=== PATIENT | female | born 1955 | race Native Hawaiian/Other Pacific Islander ===

== ENCOUNTER 2016-09-30 14:09 | Outpatient (CLI) | payer OTHER ==
--- NOTE | 2016-09-30 16:38 | MRI Report ---
EXAM: RIGHT KNEE MRI WITHOUT CONTRAST EXAM DATE: 09/30/2016 03:06 PM. CLINICAL HISTORY: Pain in right leg. COMPARISON: None. TECHNIQUE: Multiplanar, multisequence T1-weighted and fluid-sensitive sequences of the knee without c ontrast. Other: None. FINDINGS: Bones: No fractures or subluxations. No marrow edema. No bone lesions. Articular Cartilage: There is mild thinning of the hyaline cartilage of the lateral patellar facet. T here is also mild thinning of the hyaline cartilage of the medial and lateral compartments. Medial Meniscus: The medial meniscus is intact. Lateral Meniscus: The lateral meniscus is intact. Cruciate Ligaments: The anterior and posterior cruciate ligaments are intact. Collateral Ligaments: The medial collateral and lateral collateral ligamentous structures are intact. Tendons: The quadriceps, patellar and popliteus tendons appear normal. There is increased T2 signal in the semimembranosus tendon, which appears frayed and surrounded by fl uid close to its distal attachment. The findings are consistent with partial-thickness tearing. The r emaining posteromedial corner structures appear unremarkable. Musculature: No edema or fatty atrophy. Other: No effusion. No popliteal cyst. No loose bodies. The medial and lateral retinacula are intact . The subcutaneous tissues and fat pads are unremarkable. IMPRESSION: 1. Tendinosis and partial-thickness tearing of semimembranosus at its distal attachment. 2. Mild osteoarthritis of all 3 compartments. [facility] MUSCULOSKELETAL RADIOLOGY SECTION Referring Provider Line: [phone] SITE ID: [id number]
== END 2016-09-30 14:10 | disposition home or self-care (01) ==
LOC: DI 14:09
PROVIDERS: ATTEND Family Medicine
DX: M17.11 Unilateral primary osteoarthritis, right knee (principal); S76.811A Strain of other specified muscles, fascia and tendons at thigh level, right thigh, initial encounter

== ENCOUNTER 2021-04-26 10:15 | Outpatient (CLI) | payer MEDICARE, OTHER ==
[2021-04-26 13:16] LABS: HCG UR QUAL NEGATIVE
== END 2021-04-26 10:16 | disposition home or self-care (01) ==
LOC: LAB.N 10:15
PROVIDERS: ATTEND Surgery
DX: Z01.812 Encounter for preprocedural laboratory examination (principal); Z86.010 Personal history of colon polyps; E11.9 Type 2 diabetes mellitus without complications
CPT/HCPCS: 81025

== ENCOUNTER 2021-04-29 06:20 | Day surgery (SDC) | payer MEDICARE, OTHER ==
[2021-04-29] MEDS ORDERED: LACTATED RINGERS 1,000 ML IV ONE ×2 (06:49→08:27)
[2021-04-29] MEDS ORDERED: PROPOFOL 500 MG/50 ML 500 MG/50 ML VIAL ONE (07:08)
[2021-04-29] MEDS ORDERED: ONDANSETRON 4 MG/2 ML VIAL IVP PRN (07:19)
--- NOTE | 2021-04-29 07:21 | ANESTHESIA ---
Pre-Anesthesia VS, & Labs - Diagnosis history of colon polyps - Procedure colonoscopy Vital Signs: Temp Pulse Resp BP Pulse Ox 37.2 C 94 16 139/84 H 99 04/29/21 06:43 04/29/21 06:43 04/29/21 06:43 04/29/21 06:43 04/29/21 06:43 Height: 52 ft Weight (kg): 66.2 kg Body Mass Index: 0.2 BMI Classification: Underweight - NPO >8 hours - Is Patient ?: No - Lab Results Current Lab Results: Laboratory Tests 04/29/21 06:49: POC Whole Bld Glucose 151 H Home Medications and Allergies Ascorbic Acid [Vitamin C] 500 mg PO DAILY 02/25/21 Aspirin [Aspirin EC] 81 mg PO DAILY 02/25/21 Atorvastatin [Lipitor] 20 mg PO DAILY 02/25/21 Cholecalciferol [Vitamin D3] 25 mcg PO DAILY 02/25/21 Lisinopril [Zestril] 20 mg PO DAILY 02/25/21 Meloxicam [Mobic] 7.5 mg PO DAILY PRN 02/25/21 Vitamin B Complex 1 each PO DAILY 02/25/21 metFORMIN [Glucophage] 500 mg PO DAILY 02/25/21 Allergies/Adverse Reactions: Allergies Allergy/AdvReac Type Severity Reaction Status Date / Time clotrimazole [From Lotrimin] Allergy Rash Verified 02/25/21 15:24 prochlorperazine Allergy severe Verified 02/25/21 15:24 [From Compazine] muscle spasms Anes History & Medical History - Anesthetic History Anesthesia Complications: reports: Post-Operative Nausea/Vomiting - Medical History Cardiovascular: reports: Hypertension, High cholesterol Pulmonary: reports: None, Other (snores) Gastrointestinal: reports: Hemorrhoids Urinary: reports: Incontinence Neuro: reports: Headaches, Migraines Musculoskeletal: reports: Osteoarthritis Endocrine/Autoimmune: reports: Type 2 diabetes, HyPERthyroidism, Other (Graves disease) Blood Disorders: reports: None Skin: reports: Eczema Smoking Status: Never smoker Psychosocial: reports: No issues indicated History of Cancer?: No - Surgical History General: reports: Appendectomy Eyes Ears Nose Throat (EENT): reports: Cataracts Gynecologic: reports: section Exam General: Alert, Oriented x3, Cooperative, No acute distress Dental: WNL Mouth Openin Fingerbreadth Neck Mobility: Normal Mallampati classification: II Thyromental Distance: 4-6 cm Mental/Cognitive Status: Alert/Oriented X3, Normal for patient Plan Anesthesia Type: General, Total IV Consent for Procedure(s) Verified and Reviewed: Yes Code Status: Attempt Resuscitation ASA classification: 2-Mild systemic disease Is this case an emergency?: No
[2021-04-29] MEDS ORDERED: GLYCOPYRROLATE 1 MG/5 ML VIAL ONE (08:16)
--- NOTE | 2021-04-29 08:49 | ANESTHESIA POST OP EVALUATION ---
Anesthesia Post Eval - Post Anesthesia Eval Vitals: Last Vital Signs Temp 36.8 C 04/29/21 08:27 Pulse 97 04/29/21 08:27 Resp 16 04/29/21 08:27 BP 132/60 H 04/29/21 08:27 Pulse Ox 100 04/29/21 08:27 CV Function Including HR & BP: Stable Pain Control: Satisfactory Nausea & Vomiting: Negative Mental Status: Baseline Respiratory Status: Airway Patent Hydration Status: Satisfactory Anesthesia Complications: None
[2021-04-29 09:23] VITALS: BP 147/88
== END 2021-04-29 06:21 | disposition home or self-care (01) ==
LOC: SDS 06:20
PROVIDERS: ATTEND Surgery
PROC: 0DBL8ZZ Excision of Transverse Colon, Via Natural or Artificial Opening Endoscopic (ICD-10-PCS; 2021-04-29)
PROC: 0DBN8ZZ Excision of Sigmoid Colon, Via Natural or Artificial Opening Endoscopic (ICD-10-PCS; principal; 2021-04-29 07:30)
DX: Z12.11 Encounter for screening for malignant neoplasm of colon (principal); D12.5 Benign neoplasm of sigmoid colon; D12.3 Benign neoplasm of transverse colon; K64.8 Other hemorrhoids; K64.4 Residual hemorrhoidal skin tags; K57.30 Diverticulosis of large intestine without perforation or abscess without bleeding; R63.6 Underweight; E11.9 Type 2 diabetes mellitus without complications; Z79.84 Long term (current) use of oral hypoglycemic drugs; Z68.1 Body mass index [BMI] 19.9 or less, adult
CPT/HCPCS: 45380; 45385; 87635; J7120

== ENCOUNTER 2022-12-08 09:44 | Outpatient (CLI) | payer MEDICARE, OTHER ==
--- NOTE | 2022-12-08 16:51 | DEXA Report ---
PROCEDURE: Dexa Spine and/or Hip INDICATIONS: POST MENOPAUSAL TECHNIQUE: Dual energy x-ray absorptiometry (DXA) was performed on a [employer] System. Regions measur ed are the AP Spine, femoral neck, and if needed forearm. COMPARISON: None FINDINGS: Lumbar Spine: Bone Mineral Density 1.152 g/cm/cm,T score -0.2. Normal Left Femoral Neck: Bone Mineral Density 0.942 g/cm/cm, T score -0.7. Normal Left Hip: Bone Mineral Density 0.865 g/cm/cm,T score -1.1. Osteopenia (T score greater or equal to -1.0: NORMAL) (T score from -1.1 to -2.4: OSTEOPENIA) (T score less than or equal to -2.5 to: OSTEOPOROSIS) Impression: By WHO criteria, this patient has low bone density (osteopenia of the hip. Patients with diagnosis of osteoporosis or osteopenia should have regular bone mineral density assess ment. For those eligible for Medicare, routine testing is allowed once every 2 years. Testing frequ ency can be increased for patients who have rapidly progressing disease or for those who are receivin g medical therapy to restore bone mass. Reviewed by: Natalia Lowry MD on 12/08/2022 4:50 PM PDT Approved by: Natalia Lowry MD on 12/08/2022 4:50 PM PDT Station ID: [id number]
== END 2022-12-08 09:45 | disposition home or self-care (01) ==
LOC: DI 09:44
PROVIDERS: ATTEND Student in an Organized Health Care Education/Training Program
DX: Z78.0 Asymptomatic menopausal state (principal); M85.88 Other specified disorders of bone density and structure, other site